=== PATIENT | female | born 1965 | race Caucasian/White ===

== ENCOUNTER → 2016-10-12 | Outpatient (CLI) | payer OTHER ==
--- NOTE | 2016-10-12 18:52 | MR ---
EXAMINATION TYPE: MR lumbar spine wo con DATE OF EXAM: 10/12/2016 6:45 PM COMPARISON: NONE HISTORY: Low Back Pain TECHNIQUE: Multiplanar, multisequence images of the lumbar spine were acquired. L1-L2: Normal disc appearance without desiccation. No herniation, protrusion or disc bulging. No ca nal stenosis is present. Foramina are patent bilaterally. L2-L3: Normal disc appearance without desiccation. No herniation, protrusion or disc bulging. No ca nal stenosis is present. Foramina are patent bilaterally. L3-L4: Normal disc appearance without desiccation. No herniation, protrusion or disc bulging. No ca nal stenosis is present. Foramina are patent bilaterally. L4-L5: Loss of disc signal with facet arthropathy. No canal stenosis or focal herniation. Mild degene rative disc disease. No foraminal encroachment. There is mild left lateral disc bulging.. L5-S1: Normal disc appearance without desiccation. No herniation, protrusion or disc bulging. No ca nal stenosis is present. Foramina are patent bilaterally. Facet arthropathy noted. Degenerative disc disease and sagittal disc bulging at T11-T12 Lumbar segments are intact. No paraspinal masses are identified. Conus medullaris has a normal appe arance. IMPRESSION: 1. Degenerative disc disease L4-L5 with very mild left lateral disc bulging but no foraminal encroach ment or canal stenosis. 2. Facet arthropathy L4-5 and L5-S1.
== END | disposition home or self-care (01) ==
LOC: RADMRIMAIN 17:59
PROVIDERS: ATTEND Physical Medicine & Rehabilitation
DX: M51.26 Other intervertebral disc displacement, lumbar region (principal); M51.36 Other intervertebral disc degeneration, lumbar region; M46.97 Unspecified inflammatory spondylopathy, lumbosacral region
CPT/HCPCS: 72148

== ENCOUNTER 2018-02-03 06:16 | Day surgery (SDC) | payer OTHER ==
[2018-02-01 15:58] VITALS: BMI 36.6
[~2018-02-03 06:16] MED LIST: DEXAMETHASONE SOD PHOSPHATE 10 MG/ML 1 ML VIAL IV ONE; HEPARIN SODIUM,PORCINE 5,000 UNIT/ML 1 ML VIAL SQ ONE; LACTATED RINGERS 1,000 ML IV SCH; LIDOCAINE 1% 20 ML VIAL (10MG/ML) FOR IV START INTRADERMA PRN; MIDAZOLAM 2 MG/2 ML VIAL IV PRN; MORPHINE SULFATE 4 MG/ML SYRINGE IV PRN; Pre Op ABX Message 1 EACH MISC MISCELLANE ONE; SCOPOLAMINE 1.5MG/72HR PATCH TRANSDERM ONE; fentaNYL (PF) 50 MCG/ML 2 ML AMP IV PRN
[2018-02-03 06:37] VITALS: TEMP 98.2
[2018-02-03] MEDS ORDERED: ONDANSETRON 4 MG/2 ML VIAL IVP ONE ×2 (06:57)
[2018-02-03] MEDS ORDERED: BUPIVACAINE (PF) 0.25% 30 ML VIAL SQ ONE ×3 (07:28→08:26)
[2018-02-03] MEDS ORDERED: fentaNYL (PF) 50 MCG/ML 2 ML AMP ONE (08:02)
[2018-02-03] MEDS ORDERED: GLYCOPYRROLATE 0.2 MG/ML 2 ML VIAL ONE (08:02)
[2018-02-03] MEDS ORDERED: PROPOFOL 10 MG/ML 20 ML VIAL IV ONE (08:02)
[2018-02-03] MEDS ORDERED: KETAMINE 10 MG/ML 20 ML VIAL ONE (08:02)
[2018-02-03] MEDS ORDERED: MIDAZOLAM 2 MG/2 ML VIAL ONE (08:02)
--- NOTE | 2018-02-03 08:03 | P.GSHP ---
History of Present Illness H&P Date: 02/03/18 Chief Complaint: Sebaceous cyst Patient here today for excision sebaceous cyst. Last seen in the office in December. She has been treated with antibiotics. Occasional drainage. This spontaneously drained after a infection. Past Medical History Past Medical History: Deep Vein Thrombosis (DVT), Hypertension Additional Past Medical History / Comment(s): DVT rt leg in 1999 after being on control, varicose veins History of Any Multi-Drug Resistant Organisms: None Reported Past Surgical History: Hysterectomy, Orthopedic Surgery Additional Past Surgical History / Comment(s): rt ankle/foot surgery x 3, cyst removed from left knee Past Anesthesia/Blood Transfusion Reactions: Motion Sickness, Postoperative Nausea & Vomiting (PONV) Smoking Status: Never smoker - Past Family History Father Family Medical History: Cancer, Deep Vein Thrombosis (DVT) Mother Family Medical History: No Reported History Medications and Allergies Home Medications Medication Instructions Recorded Confirmed Type Cholecalciferol [Vitamin D3] 1,000 unit PO DAILY 02/18/16 02/01/18 History Folic Acid 1 mg PO DAILY 02/18/16 02/01/18 History Losartan-Hctz 50-12.5 mg [Hyzaar 1 each PO DAILY 02/18/16 02/03/18 History 50-12.5] Magnesium 200 mg PO DAILY 02/18/16 02/01/18 History Aneta-3 Fatty Acids/Fish Oil [Fish 1 each PO DAILY 02/18/16 02/01/18 History Oil 1,000 mg Softgel] Allergies Allergy/AdvReac Type Severity Reaction Status Date / Time No Known Allergies Allergy Verified 02/01/18 15:48 Surgical - Exam Vital Signs Temp Pulse Resp BP Pulse Ox 98.2 F 70 18 112/67 95 02/03/18 06:36 02/03/18 06:36 02/03/18 06:36 02/03/18 06:36 02/03/18 06:36 Physical exam: General: Well-developed, well-nourished HEENT: Normocephalic, sclerae nonicteric Abdomen: Nontender, nondistended Extremities: No edema, left upper back with a large sebaceous cyst, chronic scarring, some fluctuance, size approximately 2.5 x 3.5 cm Neuro: Alert and oriented Assessment and Plan (1) Sebaceous cyst Narrative/Plan: we'll proceed with surgical excision at this time. Current Visit: Yes Status: Acute Code(s): L72.3 - SEBACEOUS CYST SNOMED Code(s): 741859508
[2018-02-03] MEDS ORDERED: NALOXONE 0.4 MG/ML 1 ML VIAL IV PRN (08:51)
[2018-02-03] MEDS ORDERED: traMADol 50 MG TAB PO PRN (08:51)
--- NOTE | 2018-02-03 08:59 | P.OP ---
Date of Procedure: 02/03/18 Procedure(s) Performed: PREOPERATIVE DIAGNOSIS: Left upper back sebaceous cyst POSTOPERATIVE DIAGNOSIS: Same PROCEDURE: Excision sebaceous cyst, intermediate closure 6 cm SURGEON: Jim EBL: 15 mL ANESTHESIA: Sedation COMPLICATIONS: None OPERATIVE PROCEDURE: Patient was placed in the right decubitus position. She was sedated per anesthesia. The skin was localized. An elliptical incision was made around the lesion. Incision length 6 x 3 cm. The subcutaneous tissues were divided using sharp dissection and cautery. The subcutaneous tissues were then reapproximated using 3-0 Vicryl sutures and the skin was reapproximated using 4-0 Monocryl sutures. Steri-Strips and sterile dressings were applied. DISPOSITION: Stable to recovery room
[2018-02-03 09:10] VITALS: RESP 16
[2018-02-03 09:21] VITALS: BP 119/71; PULSE 58
== END 2018-02-03 09:44 | disposition home or self-care (01) ==
LOC: ORWHC2ENDO 06:16 → EDSTATUS 07:45 → ORWHC2ENDO 09:44
PROVIDERS: ATTEND Surgery
DX: L72.0 Epidermal cyst (principal); I10 Essential (primary) hypertension; Z79.899 Other long term (current) drug therapy; Z86.718 Personal history of other venous thrombosis and embolism
CPT/HCPCS: 88304; 11406; J2250; J1644; J1100; J2405; J3010; J2704

== ENCOUNTER → 2019-08-24 | Outpatient (CLI) | payer OTHER ==
--- NOTE | 2019-08-24 15:33 | XR ---
Left knee HISTORY: Trauma, bruising, pain 3 views of the left knee, comparison to prior exam 05/19/2012 Bone mineralization, joint spaces and alignment are maintained. Soft tissue calcifications are likely vascular, surgical clip is present as on prior exam. No evident joint effusion. IMPRESSION: No fracture or dislocation.
--- NOTE | 2019-08-24 15:36 | XR ---
Right foot HISTORY: Trauma and pain 3 views of the right foot Postoperative changes are noted to the right foot. Bone mineralization is reduced. There is a screw p resent at the talus extending laterally which shows fracture at its midportion. Pes planus deformity is present. There is underlying arthropathy especially at the talonavicular joint. Plantar calcaneal spur is noted. There is soft tissue swelling. Spurring present at the tibiotalar. IMPRESSION: Fractured hardware, pes planus deformity, osteoarthritis. No fracture or dislocation. Pl дмитрий calcaneus spur.
--- NOTE | 2019-08-24 15:37 | XR ---
Right ankle HISTORY: Trauma and pain 3 views of right ankle Spurring is present at the tibiotalar joint. Multiple postop changes are noted within the foot incide ntally. There is a plantar calcaneal spur. Soft tissue swelling is present. Small metallic foreign cecilia dy present distal to the medial malleolus. IMPRESSION: No acute fracture or dislocation. Postop changes and osteoarthritis.
== END | disposition home or self-care (01) ==
LOC: RADXRMAIN 15:01
PROVIDERS: ATTEND Emergency Medicine
DX: M19.071 Primary osteoarthritis, right ankle and foot (principal); M21.41 Flat foot [pes planus] (acquired), right foot; S80.02XA Contusion of left knee, initial encounter; Z98.890 Other specified postprocedural states

== ENCOUNTER → 2019-11-16 | Outpatient (CLI) | payer OTHER ==
--- NOTE | 2019-11-16 13:47 | US ---
EXAMINATION TYPE: US venous doppler duplex LE RT DATE OF EXAM: 11/16/2019 1:31 PM COMPARISON: NONE CLINICAL HISTORY: M79.661 pain in right lower limb, posterior calf x 2 days; prior multiple right ank le surgeries per patient history. SIDE PERFORMED: Right TECHNIQUE: The lower extremity deep venous system is examined utilizing real time linear array sonog wendy with graded compression, doppler sonography and color-flow sonography. VESSELS IMAGED: Common Femoral Vein Deep Femoral Vein Greater Saphenous Vein * Femoral Vein Popliteal Vein Small Saphenous Vein * Proximal Calf Veins (* superficial vessels) Right Leg: Negative for DVT. Thickened wall valves are noted in one of 2 upper calf veins, however, color flow patency is documented. Thickened valve also noted distal Popliteal Vein. Edema channels are noted anteriorly at right ankle. IMPRESSION: No sonographic evidence of deep venous thrombosis within the right lower extremity. Incid entally noted thickened venous valves in the popliteal vein and calf veins. Right lower extremity willie ma is seen.
== END | disposition home or self-care (01) ==
LOC: RADUSWWP 12:52
PROVIDERS: ATTEND Family Medicine
DX: R60.0 Localized edema (principal); M79.661 Pain in right lower leg; Z86.718 Personal history of other venous thrombosis and embolism
CPT/HCPCS: 85379

== ENCOUNTER → 2022-06-02 | Outpatient (CLI) | payer OTHER, MEDICARE ==
--- NOTE | 2022-06-03 06:28 | MR ---
EXAMINATION TYPE: MR knee RT wo con DATE OF EXAM: 06/02/2022 COMPARISON: Outside right knee x-ray from yesterday HISTORY: Right knee pain x 6 weeks. TECHNIQUE: Multiplanar, multisequence imaging of the right knee is performed without IV contrast. FINDINGS: MEDIAL MENISCUS: Increased signal medial meniscus is most prominent in the posterior horn extending t owards the central body does not definitively extend to articular surface. LATERAL MENISCUS: Anterior and posterior horns are intact without tear. CRUCIATE LIGAMENTS: The anterior and posterior cruciate ligaments are intact and unremarkable. COLLATERAL LIGAMENTS: The medial collateral ligament and lateral collateral ligament complex are inta ct. Mild fluid signal surrounds the medial collateral ligament. EXTENSOR MECHANISM: Visualized quadriceps and patellar tendons are intact. EFFUSION: Small suprapatellar joint effusion. Prominent vessels noted in the suprapatellar region th rough the deep fat POPLITEAL CYST: There is larger popliteal/d[place] cyst measuring at least 8.3 cm craniocaudal dimensio n sagittal image 13 with multi septated appearance and larger width of cysts noted more inferiorly or distally TRICOMPARTMENT SPACES: Mild to moderate tricompartment joint space loss. No significant spurring. CARTILAGE: Some chondromalacia patella with thinning of articular cartilage along the posterior aspec t of the patellar pole. No full-thickness defects. Articular cartilage is maintained medial and later al tibiofemoral compartments BONE MARROW SIGNAL: No focal abnormal marrow signal is appreciated. OTHER: Mild to moderate diffuse subcutaneous edema greatest laterally is seen. Prominent superficial vessels suggest varicose veins. Soft tissue calcifications/ossifications medial anterior aspect prox imal tibia extending inferiorly are less well seen on MRI versus plain films likely dystrophic calcif ications present near coronal image 10 for reference. IMPRESSION: 1. Intrasubstance tear medial meniscus involving posterior horn and central body. No full-thickness m eniscal tear clearly seen. 2. Perhaps mild MCL sprain injury, correlate clinically. 3. Large multi septated popliteal cyst with inferior extension not completely imaged on this exam. 4. Mild to moderate tricompartment degenerative changes as detailed above. 5. Small suprapatellar joint effusion. Unusual prominent tubular structure suspected vessels in the s uprapatellar space of uncertain etiology and clinical significance.
== END | disposition home or self-care (01) ==
LOC: RADMRIMAIN 18:19
PROVIDERS: ATTEND Orthopaedic Surgery
DX: M23.321 Other meniscus derangements, posterior horn of medial meniscus, right knee (principal); M17.11 Unilateral primary osteoarthritis, right knee; M25.461 Effusion, right knee

== ENCOUNTER 2022-07-29 11:24 | Day surgery (SDC) | payer OTHER, MEDICARE ==
--- NOTE | 2022-07-29 04:29 | HP ---
HISTORY AND PHYSICAL DATE OF SURGERY: 07/29/2022. HISTORY OF PRESENT ILLNESS: Judit Valencia is a 57-year-old patient seen with progressive right knee pain. We discussed options for treatment. She elected to proceed with right knee arthroscopy. Consent was obtained. PAST MEDICAL HISTORY: Hypertension. PAST SURGICAL HISTORY: Foot surgery. DAILY MEDICATIONS: 1. Hydrochlorothiazide. 2. Losartan. ALLERGIES: None. SOCIAL HISTORY: She denies tobacco use. PHYSICAL EVALUATION OF THE RIGHT KNEE: Range of motion is 0 to 130. Mild effusion. Tenderness along the medial and lateral joint lines. Positive medial Corinne's. Positive lateral Corinne's. Ligaments stable. Hip rotation without pain. Distal neurovascular exam is intact. RADIOGRAPHS: Radiographs of the right knee revealed osteoarthritic changes. MRI of right knee revealed medial meniscal tear, popliteal cyst, and effusion. IMPRESSION: 1. Internal derangement of right knee with medial meniscal tear. 2. Hypertension. PLAN: Right knee arthroscopy with partial medial meniscectomy and debridement. MMODL / IJN: [id number] /
[~2022-07-29 11:24] MED LIST changes: -DEXAMETHASONE SOD PHOSPHATE 10 MG/ML 1 ML VIAL IV ONE; +DEXAMETHASONE SOD PHOSPHATE 4 MG/ML 1 ML VIAL IV ONE; -HEPARIN SODIUM,PORCINE 5,000 UNIT/ML 1 ML VIAL SQ ONE; -LIDOCAINE 1% 20 ML VIAL (10MG/ML) FOR IV START INTRADERMA PRN; -MIDAZOLAM 2 MG/2 ML VIAL IV PRN; -MORPHINE SULFATE 4 MG/ML SYRINGE IV PRN; -Pre Op ABX Message 1 EACH MISC MISCELLANE ONE; -SCOPOLAMINE 1.5MG/72HR PATCH TRANSDERM ONE; -fentaNYL (PF) 50 MCG/ML 2 ML AMP IV PRN
[2022-07-29] MEDS ORDERED: LACTATED RINGERS 1,000 ML IV ONE ×2 (11:48→13:51)
[2022-07-29] MEDS: ONDANSETRON 4 MG/2 ML VIAL IVP ONE ×2 (11:59→15:40)
[2022-07-29] MEDS ORDERED: PROPOFOL 10 MG/ML 20 ML VIAL IV ONE (13:15)
[2022-07-29] MEDS ORDERED: LIDOCAINE 2% INJ 20 MG/ML (2 ML VIAL) ONE (13:15)
[2022-07-29] MEDS ORDERED: fentaNYL (PF) 50 MCG/ML 2 ML AMP ONE (13:15)
[2022-07-29] MEDS ORDERED: MIDAZOLAM 2 MG/2 ML VIAL ONE (13:15)
[2022-07-29] MEDS ORDERED: BUPIVACAINE (PF) 0.25% 30 ML VIAL SQ ONE ×2 (13:24→13:55)
[2022-07-29 14:07] VITALS: TEMP 97
[2022-07-29] MEDS ORDERED: MEPERIDINE 50 MG/ML SYRINGE IVP ONE (14:10)
--- NOTE | 2022-07-29 14:11 | P.OP ---
Date of Procedure: 07/29/22 Preoperative Diagnosis: Internal derangement right knee Postoperative Diagnosis: 1. Tear medial and lateral meniscus right knee 2. 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 Reactive synovitis medial, lateral and suprapatellar compartments right knee Procedure(s) Performed: 1. Arthroscopic partial medial and lateral meniscectomy right knee 2. Arthroscopic chondroplasty lateral femoral condyle right knee 3. Arthroscopic partial synovectomy medial, lateral and suprapatellar compartments right knee Anesthesia: PATTIA, local Surgeon: Good Samano Estimated Blood Loss (ml): 6 Pathology: none sent Condition: stable Disposition: PACU Indications for Procedure: 57-year-old patient seen with progressive pain. After treatment options were discussed, she elected to proceed with arthroscopy. Operative Findings: See description of procedure Description of Procedure: Patient was taken to the operative suite. Patient underwent a general anesthetic by the department of anesthesia. Patient was given preoperative antibiotics. The right lower extremity was placed in a well-padded arthroscopic leg oh. The right leg was prepped and draped in the normal sterile orthopedic fashion. A lateral parapatellar and suprapatellar incision was made. Trochars were inserted. Arthroscopy was initiated. Suprapatellar pouch revealed diffuse thick reactive synovitis. The patellofemoral joint appeared to articulate congruently. There was grade 2 chondromalacia of the patellofemoral joint. The scope was guided into the medial gutter. No loose bodies or plica were identified The scope was then guided into the medial compartment. A medial parapatellar incision was made. Trocar inserted followed by probe. There was a radial tear involving the posterior horn of the medial meniscus. There were grade 1 chondromalacia changes throughout the medial compartment. There was some thick reactive synovitis anteriorly. I performed a partial medial meniscectomy getting down to stable meniscal tissue. I performed a partial synovectomy decompressing the reactive synovitis. The residual meniscus was stable. There was good decompression of the synovitis. Scope and probe were then guided into the intercondylar notch. Cruciates were identified, probed and found to be stable. The scope and probe were then guided into lateral compartment. There was a complex tear involving the posterior horn of lateral meniscus. There were grade 3 chondromalacia changes of the lateral femoral condyle with some large osteochondral tears present. There was some thick reactive synovitis anteriorly. I performed a partial lateral meniscectomy. I performed a chondroplasty of the lateral femoral condyle. I performed a partial synovectomy. The residual meniscus was stable. The residual osteochondral surface was stable. There was good decompression of the synovitis. The scope was in guided back into the suprapatellar compartment. I introduced a motorized shaver into the suprapatellar compartment. I debrided some piecemeal fragments of meniscus I encountered. I performed a partial synovectomy. Shaver was now removed. There was good decompression of the synovitis. I took one more look around the entire knee, no residual debris. Instruments were now removed from the joint. The joint was infiltrated with .25% Marcaine. Steri-Strips were applied to the portal sites. Sterile dress ings were applied. The patient was placed into a MISSY hose. No tourniquet was utilized. The patient was awakened, transferred to a bed and taken to recovery stable satisfactory condition.
[2022-07-29] MEDS: HYDROmorphone 0.5 MG/0.5 ML SYRINGE IVP PRN ×3 (14:21→14:47)
[2022-07-29 15:31] VITALS: RESP 18
[2022-07-29] MEDS ORDERED: ONDANSETRON 4 MG/2 ML VIAL ONE (15:42)
[2022-07-29 17:02] VITALS: BP 100/63; PULSE 57
== END 2022-07-29 17:00 | disposition home or self-care (01) ==
LOC: OR 11:24
PROVIDERS: ATTEND Orthopaedic Surgery
DX: S83.281A Other tear of lateral meniscus, current injury, right knee, initial encounter (principal); M94.261 Chondromalacia, right knee; M65.861 Other synovitis and tenosynovitis, right lower leg; M23.91 Unspecified internal derangement of right knee; I10 Essential (primary) hypertension; Z98.890 Other specified postprocedural states
CPT/HCPCS: 29880; J2250; J1100; J0690; J2405; J3010; J2704; J1170; J2001

== ENCOUNTER → 2023-07-12 | Outpatient (CLI) | payer OTHER, MEDICARE ==
--- NOTE | 2023-07-12 11:57 | XR ---
EXAMINATION TYPE: XR chest 2V DATE OF EXAM: 07/12/2023 COMPARISON: NONE TECHNIQUE: PA and lateral views submitted. HISTORY: Shortness of breath FINDINGS: The lungs are clear and there is no pneumothorax, pleural effusion, or focal pneumonia. Heart size normal and no overt failure. Osseous structures demonstrate hypertrophic and degenerative changes of the spine. Limited inspiration with biapical pleural thickening. Bilateral shoulder arthropathy. IMPRESSION: 1. No acute process.
== END | disposition home or self-care (01) ==
LOC: RADXRMAIN 11:15
PROVIDERS: ATTEND Family Medicine
DX: R05.9 Cough, unspecified (principal); R06.02 Shortness of breath
CPT/HCPCS: 71046